=== PATIENT | male | born 2000 | race Caucasian/White ===

== ENCOUNTER 2022-10-31 19:44 | Emergency (ER) | payer MEDICAID ==
[~2022-10-31] VITALS: Ht 167.6 cm; Wt 61.2 kg
[2022-10-31 20:06] VITALS: BP_SYST 104; PULSE 78; RESP 17; TEMP 97.6; O2SAT 98
[2022-10-31] MEDS ORDERED: IBUP-1971 PO (20:43)
[2022-10-31] MEDS ORDERED: AMOX-423 PO (20:43)
[2022-10-31] MEDS ORDERED: AMOXICILLIN/POTASSIUM CLAV 875 MG TABLET PO ONE (20:45)
[2022-10-31 21:22] VITALS: BP_SYST 104; PULSE 78; RESP 17; TEMP 97.6; O2SAT 98
== END 2022-10-31 21:22 | disposition home or self-care (01) ==
LOC: SED 19:44
DX: J02.9 Acute pharyngitis, unspecified (principal); Z79.899 Other long term (current) drug therapy
CPT/HCPCS: 99283